=== PATIENT | male | born 1985 | race Caucasian/White ===

== ENCOUNTER 2016-05-01 07:15 | Inpatient (IN) | payer OTHER, MEDICAID ==
[2016-05-01] VITALS (7 sets, daily range): BP systolic 103–160; BP diastolic 59–69; PULSE 73–83; RESP 16–17; TEMP 96.5–99.6; O2SAT 95–100
[~2016-05-01] VITALS: Ht 180.3 cm; Wt 72.3 kg
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
[2016-05-01 07:33] LABS: I-STAT POTASSIUM 4.3 MMOL/L (3.5-4.9); I-STAT SODIUM 139 MMOL/L (138-146)
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
[2016-05-01 07:36] LABS: AUTOMATED NEUTROPHIL # 5.9 TH/MM3 (1.8-7.7); BASOPHIL % 0.3 % (0.0-2.0); EOSINOPHIL # 0.3 TH/MM3 (0-0.4); EOSINOPHIL % 3.7 % (0.0-4.0); HEMO FLAGS DIFF FINAL; LYMPH % 17.3 % (9.0-44.0); LYMPHOCYTE # 1.4 TH/MM3 (1.0-4.8); MEAN CELL VOLUME 85.1 FL (80.0-100.0); MEAN CORPUSCULAR HEMOGLOBIN 29.1 PG (27.0-34.0); MEAN CORPUSCULAR HGB CONC 34.2 % (32.0-36.0); MONO % 4.6 % (0.0-8.0); NEUT % 74.1 % (16.0-70.0); PLATELET COUNT 199 TH/MM3 (150-450); RED BLOOD COUNT 5.05 MIL/MM3 (4.50-5.90); RED CELL DISTRIBUTION WIDTH 14.1 % (11.6-17.2)
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
[2016-05-01] MEDS ORDERED: IOHEXOL 350 MG/ML 10 ML VIAL (for RAD DIAG) IV ONE (07:45)
[2016-05-01 07:46] LABS: PROTHROMBIN TIME - PATIENT 10.6 SEC (9.8-11.6)
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
[2016-05-01] MEDS ORDERED: SODIUM CHLORIDE 0.9% FLUSH 5 ML FLUSH IV FLUSH PRN (08:00)
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
[2016-05-01] MEDS: SODIUM CHLORIDE 0.9% FLUSH 5 ML FLUSH IV FLUSH SCH ×2 (08:50→20:38)
[2016-05-01] MEDS: HYDROmorphone HCL PF 1 MG/ML VIAL IV PUSH PRN ×4 (08:50→20:38)
[2016-05-01] MEDS: LACTATED RINGER'S 1000 ML INJ 1,000 ML IV SCH ×2 (08:50→20:37)
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
[2016-05-01] MEDS ORDERED: ETOMIDATE 20 MG/10 ML VIAL ONE (10:13)
[2016-05-01] MEDS ORDERED: SUCCINYLCHOLINE CHLORIDE 200 MG/10 ML VIAL ONE ×2 (10:13→11:13)
[2016-05-01] MEDS ORDERED: PROPOFOL 1000 MG/100 ML INJ 100 ML ONE (10:17)
[2016-05-01] MEDS ORDERED: ROCURONIUM INJ 50 MG/5 ML VIAL ONE (11:13)
[2016-05-01] MEDS ORDERED: MORPHINE SULFATE 4 MG/ML INJ IV PUSH ONE (12:12)
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
[2016-05-01] MEDS: BACITRACIN TOP OINT 15 GM TUBE TOP SCH (21:00)
[2016-05-02 00:35] VITALS: BP 106/58; PULSE 71; RESP 16; TEMP 98.1; O2SAT 97
[2016-05-02 03:40] VITALS: BP 110/69; PULSE 72; RESP 16; TEMP 99.4; O2SAT 98
[2016-05-02] MEDS: HYDROmorphone HCL PF 1 MG/ML VIAL IV PUSH PRN (05:52)
[2016-05-02 08:00] VITALS: BP 104/64; PULSE 66; RESP 20; TEMP 97.4; O2SAT 97
[2016-05-02] MEDS: BACITRACIN TOP OINT 15 GM TUBE TOP SCH ×3 (09:00→21:00)
[2016-05-02] MEDS: LACTATED RINGER'S 1000 ML INJ 1,000 ML IV SCH ×2 (09:06→21:09)
[2016-05-02 12:00] VITALS: BP 116/83; PULSE 69; RESP 20; TEMP 99; O2SAT 99
[2016-05-02] MEDS ORDERED: WALKER WHEELS/F1 MIS (14:12)
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
[2016-05-02] MEDS ORDERED: METH500T3 PO (15:22)
[2016-05-02] MEDS ORDERED: DOCU1CAP39 PO (15:22)
[2016-05-02 16:00] VITALS: BP 116/65; PULSE 70; RESP 20; TEMP 99.1; O2SAT 96
[2016-05-02] MEDS: MAGNESIUM HYDROXIDE SUSP 30 ML CUP PO SCH (16:22)
[2016-05-02] MEDS: FAMOTIDINE 20 MG TAB PO SCH ×2 (16:22→23:40)
[2016-05-02] MEDS: METHOCARBAMOL 500 MG TAB PO PRN (16:22)
[2016-05-02] MEDS ORDERED: PERC5TAB12 PO (16:49)
[2016-05-02 20:00] VITALS: BP 120/70; PULSE 72; RESP 18; TEMP 99; O2SAT 97
[2016-05-02] MEDS: SODIUM CHLORIDE 0.9% FLUSH 5 ML FLUSH IV FLUSH SCH (23:40)
[2016-05-02] MEDS: DOCUSATE SODIUM 100 MG CAP PO SCH (23:40)
[2016-05-03 01:50] VITALS: BP 112/65; PULSE 69; RESP 16; TEMP 98.3; O2SAT 98
[2016-05-03 08:00] VITALS: BP 121/66; PULSE 71; RESP 20; TEMP 98.4; O2SAT 97
[2016-05-03] MEDS: LACTATED RINGER'S 1000 ML INJ 1,000 ML IV SCH (09:12)
[2016-05-03] MEDS: SODIUM CHLORIDE 0.9% FLUSH 5 ML FLUSH IV FLUSH SCH (09:47)
[2016-05-03] MEDS: MAGNESIUM HYDROXIDE SUSP 30 ML CUP PO SCH (09:48)
[2016-05-03] MEDS: DOCUSATE SODIUM 100 MG CAP PO SCH (09:49)
[2016-05-03] MEDS: FAMOTIDINE 20 MG TAB PO SCH (09:49)
[2016-05-03] MEDS: BACITRACIN TOP OINT 15 GM TUBE TOP SCH (09:51)
[2016-05-03] MEDS: METHOCARBAMOL 500 MG TAB PO PRN (10:38)
== END 2016-05-03 10:51 | disposition home or self-care (01) | DRG 89 ==
LOC: NEPI 07:15 → EDBD 08:18 → NEDH 08:18 → NEDA 08:18 → UNDOADMIN 08:18 → N06A 15:18 → NEDH 15:18
PROVIDERS: ADMIT Surgery Trauma Surgery; ATTEND Surgery Trauma Surgery
DX: S06.0X9A Concussion with loss of consciousness of unspecified duration, initial encounter (principal); S22.018A Other fracture of first thoracic vertebra, initial encounter for closed fracture; S22.078A Other fracture of T9-T10 vertebra, initial encounter for closed fracture; S22.088A Other fracture of T11-T12 vertebra, initial encounter for closed fracture; V49.9XXA Car occupant (driver) (passenger) injured in unspecified traffic accident, initial encounter; Y92.410 Unspecified street and highway as the place of occurrence of the external cause
CPT/HCPCS: 70450; 71010; 71260; 72125; 72128; 72131; 72170; 74177; 80320; 82435; 82565; 82947; 84132; 84295; 84520; 85025; 85610; 85730; 86850; 86900; 86901; 94150; 96374; 99291; A0431-QM-IH; A0436-QM-IH; G0390; J0330; J1170; J2270; J3010; J7120; L0150; L0172; Q9967